=== PATIENT | female | born 1955 | race Caucasian/White ===

== ENCOUNTER 2017-03-09 00:44 | Emergency (ER) | payer BC ==
[~2017-03-09] VITALS: Ht 170.2 cm; Wt 70.9 kg
[~2017-03-09 00:44] MED LIST: ADVIL COLD &1 TABLET PO; DIPROSONE 0.05%15 GM TP; ESTRACE2 MG PO; LEVOXYL50 MCG PO; PRILOSEC40 MG PO; Vicodin,Norco 5/325 PO
[2017-03-09 02:01] VITALS: BP 118/82
== END 2017-03-09 02:23 | disposition home or self-care (01) ==
LOC: EME 00:44
DX: G89.18 Other acute postprocedural pain (principal); S10.93XA Contusion of unspecified part of neck, initial encounter; W01.190A Fall on same level from slipping, tripping and stumbling with subsequent striking against furniture, initial encounter; Z98.1 Arthrodesis status; Z98.890 Other specified postprocedural states; K21.9 Gastro-esophageal reflux disease without esophagitis; Z87.442 Personal history of urinary calculi; Z88.0 Allergy status to penicillin; Z88.1 Allergy status to other antibiotic agents; Z88.5 Allergy status to narcotic agent
CPT/HCPCS: 72040; 99281; 99284